=== PATIENT | male | born 1955 | race Two or more races ===

== ENCOUNTER 2020-07-05 10:51 | Emergency (ER) | payer SELFPAY ==
[~2020-07-05] VITALS: Ht 172.7 cm; Wt 81.8 kg
[2020-07-05 12:22] LABS: BASOPHILS % (AUTO) 0.6 % (0.0-2.0); EOSINOPHILS % (AUTO) 2.4 % (1.0-6.0); HEMATOCRIT 37.9 % (41-53); HEMOGLOBIN 12.7 g/dL (13.5-17.5); LYMPHOCYTES # (AUTO) 2.1 K/uL (1.0-4.8); MEAN CORPUSCULAR HEMOGLOBIN 30.1 pg (26.0-34.0); MEAN CORPUSCULAR HGB CONC 33.4 G/dL (31.0-37.0); MEAN CORPUSCULAR VOLUME 90 fL (80-100); MONOCYTES # (AUTO) 0.5 K/uL (0.1-1.0); MONOCYTES % (AUTO) 7.3 % (2.0-9.0); NEUTROPHILS % (AUTO) 58.7 % (40.0-70.0); PLATELET COUNT (AUTO) 192 K/uL (150-450); RED CELL DISTRIBUTION WIDTH 14.6 % (11.5-14.5)
[2020-07-05 12:31] LABS: ANION GAP 11 mmol/L (8-16); CARBON DIOXIDE 26 mmol/L (22-29); CHLORIDE 104 mmol/L (98-107); CREATININE 0.59 mg/dL (0.60-1.30); GLOMERULAR FILTR. RATE CALC > 60 mL/min (>60); GLUCOSE,RANDOM 82 mg/dL (70-110); POTASSIUM 3.7 mmol/L (3.5-5.1); SODIUM SERUM 141 mmol/L (136-145); UREA NITROGEN, BLOOD 14 mg/dL (7-18)
[2020-07-05 12:45] LABS: ALANINE AMINOTRANSFERASE 47 U/L (12-78); ALBUMIN 3.5 g/dL (3.4-5.0); ALKALINE PHOSPHATASE 108 U/L (46-116); ASPARTATE AMINOTRANSFERASE 36 U/L (15-37); BILIRUBIN,TOTAL 0.5 mg/dL (0.1-1.0); SALICYLATE < 2.8 mg/dL (2.8-20.0); THYROID STIMULATING HORMONE 1.28 uIU/mL (0.36-3.74); TOTAL PROTEIN, SERUM 7.8 g/dL (6.4-8.2)
[2020-07-05 12:46] LABS: ACETAMINOPHEN < 2 mcg/mL (10-30)
[2020-07-05 14:27] VITALS: BP 111/92
== END 2020-07-05 14:47 | disposition home or self-care (01) ==
LOC: EMS 10:51
DX: R94.31 Abnormal electrocardiogram [ECG] [EKG] (principal); R41.82 Altered mental status, unspecified
CPT/HCPCS: 36415; 70450; 71045; 80053; 84443; 84484; 85025; 93005; 99285; G0480; G0481